=== PATIENT | female | born 1990 | race Caucasian/White ===

== ENCOUNTER 2019-05-26 10:16 | Emergency (ER) | payer OTHER ==
[~2019-05-26] VITALS: Ht 165.1 cm; Wt 63.5 kg
[~2019-05-26 10:16] MED LIST: AZITHROMYCIN500 MG PO; CATAFLAM50 MG PO; CONEX TABLET1 EACH PO; LEVOTHROID25 MCG PO; ORPH100T PO; PROVENTIL HFA6.7 GM IH; PROZAC20 MG; TUSICOF LIQUID120 ML PO
[2019-05-26] MEDS ORDERED: TUSSI PRES-B L480 ML PO (13:29)
[2019-05-26] MEDS ORDERED: ZITHROMAX500 MG PO (13:29)
== END 2019-05-26 13:46 | disposition home or self-care (01) ==
LOC: ER 10:16
DX: R09.81 Nasal congestion (principal); B96.0 Mycoplasma pneumoniae [M. pneumoniae] as the cause of diseases classified elsewhere